=== PATIENT | female | born 1995 | race Caucasian/White ===

== ENCOUNTER 2017-03-04 16:41 | Emergency (ER) | payer BC ==
[~2017-03-04] VITALS: Ht 170.2 cm; Wt 63.9 kg
[2017-03-04] MEDS ORDERED: PERCOCET 5/31 TABLET PO (17:26)
[2017-03-04] MEDS ORDERED: TOBREX3.5 GM LEFT EYE (17:26)
[2017-03-04 17:33] VITALS: BP 144/108
== END 2017-03-04 17:33 | disposition home or self-care (01) ==
LOC: EME 16:41
DX: S05.02XA Injury of conjunctiva and corneal abrasion without foreign body, left eye, initial encounter (principal)
CPT/HCPCS: 99281; 99283